=== PATIENT | male | born 1955 | race Caucasian/White ===

== ENCOUNTER 2017-11-09 05:42 | Outpatient (CLI) | payer BC ==
[~2017-11-09] VITALS: Ht 177.8 cm; Wt 90.7 kg
[~2017-11-09 05:42] MED LIST: LISI10TA PO
[2017-11-09] MEDS ORDERED: METF1000 PO (13:48)
[2017-11-09] MEDS ORDERED: LISI-552 PO (13:48)
== END 2017-11-09 13:49 ==
LOC: PREOP 05:42
PROVIDERS: ATTEND Internal Medicine
DX: Z01.818 Encounter for other preprocedural examination (principal); Z12.11 Encounter for screening for malignant neoplasm of colon; Z86.010 Personal history of colon polyps

== ENCOUNTER → 2020-11-09 | Outpatient (CLI) | payer BC ==
[~2020-11-09] MED LIST changes: +LISI20TA26 PO; +METF-399 PO
== END ==
LOC: LABNPT 08:27
PROVIDERS: ATTEND Internal Medicine
DX: Z20.822 Contact with and (suspected) exposure to COVID-19 (principal)
CPT/HCPCS: 87635

== ENCOUNTER 2023-04-18 05:39 | Outpatient (CLI) | payer MEDICARE ==
[~2023-04-18] VITALS: Ht 177.8 cm; Wt 79.0 kg
== END 2023-04-18 10:14 | disposition home or self-care (01) ==
LOC: PREOP 05:39
PROVIDERS: ATTEND Internal Medicine
DX: Z01.818 Encounter for other preprocedural examination (principal)

== ENCOUNTER 2023-04-27 08:06 | Day surgery (SDC) | payer BC, MEDICARE ==
--- NOTE | 2023-04-13 06:42 | HISTORY AND PHYSICAL ---
COLONOSCOPY HISTORY AND PHYSICAL HISTORY OF PRESENT ILLNESS: The patient is a 67-year-old white male, who is seen for followup of hypertension and insulin resistance. He has a family history of colon cancer, in this case being his father, who succumbed to the disease at 64. He was due for screening colonoscopy. He reports some occasional loose stools, but has noted no bright red blood per rectum, melena and denies abdominal pain or change in weight. He has been feeling well otherwise. PHYSICAL EXAMINATION: GENERAL: Reveals a white male who appeared to be in no acute distress. His weight was stable at 174.4 pounds. VITAL SIGNS: Blood pressure 120/64. CHEST: Clear. CARDIOVASCULAR: Reveals regular rate and rhythm without murmur, S3, or S4. ABDOMEN: Soft, supple without mass, organomegaly, or tenderness. EXTREMITIES: No cyanosis, clubbing or edema. SKIN: Evaluation revealed no suspicious nevi. LABORATORY DATA: Blood tests were reviewed with patient for followup of insulin resistance. He had a basic metabolic panel that revealed his blood sugar was low at 114, fasting compared to 123 six months ago. His A1c was also lowered down from 5.6 to 5.3%. He continues on metformin. The remainder of his basic metabolic panel was normal with a GFR of 90 and normal electrolytes. ASSESSMENT AND PLAN: 1. Hypertension, under good control. 2. Insulin resistance, improving. Continue metformin. 3. Family history of colon cancer. The patient is being set up for screening colonoscopy on 04/27/2023. Prep instructions were given and questions were answered. I will see him back in 6 months for followup. We will be obtaining CBC, CMP, PSA and lipid panel. Job ID: [id number] DocumentID: [id number] Dictated Date: 04/04/2023 09:10:31 Quality Improvement Coordinator Date: 04/04/2023 09:29:00 Dictated By: JOSE E NICHOLS MD
[2023-04-27] VITALS (7 sets, daily range): BP systolic 99–144; BP diastolic 61–87
[~2023-04-27] VITALS: Ht 177.8 cm; Wt 79.0 kg
[2023-04-27] MEDS ORDERED: LACTATED RINGERS 1,000 ML 1,000 ML IV STA (08:09)
[2023-04-27] MEDS ORDERED: LACTATED RINGERS 1,000 ML 1,000 ML IV ONE (08:23)
--- NOTE | 2023-04-27 09:13 | Pre-Op Note & Conscious Sedat ---
Pre-Operative Progress Note Date H&P Reviewed: Apr 27, 2023 Time H&P Reviewed: 09:12 History & Physical: H&P Reviewed, Patient Examed, No changes noted Pre-Op Diagnosis: screening Moderate Sedation PreProcedure ASA Score 2 Airway Lungs Heart ASA score ASA 1: a normal healthy patient ASA 2: a patient with a mild systemic disease (mid diabetes, controlled hypertension, obesity ASA 3: a patient with a severe systemic disease that limits activity (angina, COPD, prior Myocardial infarction) ASA 4: a patient with an incapacitating disease that is a constant threat to life (CHF, renal failure) ASA 5: a moribund patient not expected to survive 24 hrs. (ruptured aneurysm) ASA 6: a declared brain- patient whose organs are being harvested. For emergent operations, add the letter E after the classification Mallampati Classification Grade 2 Sedation Plan Analgesia, Amnesia, Plan communicated to team members, Discussed options with patient/fam, Discussed risks with patient/fam The patient is an appropriate candidate to undergo the planned procedure, sedation, and anesthesia. The patient immediately re-assessed prior to indication. JOSE E NICHOLS MD Apr 27, 2023 09:13
[2023-04-27] MEDS ORDERED: proPOfol INJECTION 200 MG/20 ML VIAL IV ONE (10:07)
--- NOTE | 2023-04-27 10:12 | Progress Note-Post Operative ---
Post-Procedure Note Physician (s)/Parking Lot Attendant (s) Physician JOSE E NICHOLS MD Pre-Procedure Diagnosis Pre-Procedure Diagnosis: screening Post-Procedure Diagnosis Post-operative diagnosis: Prior to undergoing colonoscopy digital rectal evaluation was performed. Anal sphincter tone was normal and the perianal reflexes intact. Prostate is moderately enlarged on digital inspection and a nodular. No other abnormalities noted on digital inspection anal canal or distal rectal vault. The colonoscope was inserted into the rectum and under direct visualization advanced cecum. The cecum was identified by the indication of the ileocecal valve and the cecal strap. Photographic documentation was obtained. Quality of the prep was good. Careful inspection was made as the colonoscope was withdrawn. Findings: Several grade 1 internal hemorrhoid complexes were noted with no evidence of rectal hemorrhoids. The rectum was otherwise unremarkable. Mild diverticular disease confined to the sigmoid colon was present without evidence for diverticulitis. The descending colon splenic flexure transverse colon hepatic flexure unremarkable. A 3 mm sessile polyp was noted in the mid ascending colon it was photographed and biopsied and ablated with hot forceps with no subsequent blood loss. The remainder the ascending colon and cecum were unremarkable under good prep conditions. A/P 1. Digital evaluation the prostate was compatible with moderate BPH. 2. Mild diverticular disease confined to the sigmoid colon is present without evidence for diverticulitis. 3. 1 diminutive 3 mm sessile polyp was removed via hot forceps from the descending colon with no other evidence for neoplasia. Considering family history we will advocate consideration for repeat screening colonoscopy in 5 years. JOSE E NICHOLS MD Apr 27, 2023 10:12
--- NOTE | 2023-04-27 14:06 | Anesthesia-General Post-Op ---
MAC Patient Condition Mental Status/LOC: Same as Preop Cardiovascular: Satisfactory Nausea/Vomiting: Absent Respiratory: Satisfactory Pain: Controlled Complications: Absent Post Op Complications Complications None Follow Up Care/Instructions Patient Instructions None needed. Anesthesiology Discharge Order Discharge Order Patient was doing well after the procedure with no complaints, stable vital signs, no apparent adverse anesthesia problems. No complications reported per nursing. CLEM AZEVEDO DO Apr 27, 2023 14:06
== END 2023-04-27 10:51 | disposition home or self-care (01) ==
LOC: ENDO 08:06
PROVIDERS: ATTEND Internal Medicine
DX: Z12.11 Encounter for screening for malignant neoplasm of colon (principal); D12.2 Benign neoplasm of ascending colon; K64.0 First degree hemorrhoids; K57.30 Diverticulosis of large intestine without perforation or abscess without bleeding; N40.0 Benign prostatic hyperplasia without lower urinary tract symptoms; I10 Essential (primary) hypertension; E88.81 Metabolic syndrome and other insulin resistance; Z79.84 Long term (current) use of oral hypoglycemic drugs; Z80.0 Family history of malignant neoplasm of digestive organs